=== PATIENT | female | born 1960 | race Caucasian/White ===

== ENCOUNTER 2021-05-13 07:32 | Observation (INO) ==
[2021-05-13] MEDS ORDERED: Famotidine 20 MG/2 ML VIAL IVP ONE ×2 (08:29→13:48)
[2021-05-13] MEDS ORDERED: Isovue-370 500 ML BOTTLE IVP ONE (08:29)
[2021-05-13] MEDS ORDERED: 0.9 % Sodium Chloride 1,000 ML IVC ONE (08:29)
[2021-05-13] MEDS ORDERED: GI Cocktail 40 ML EACH PO ONE (08:29)
[2021-05-13 08:44] LABS: Basophils % 0.4 %; Eosinophils % 0.6 %; Hematocrit 41.6 % (35.3-44.9); Hemoglobin 14.7 g/dL (11.5-15.4); Immature Granulocytes % 0.4 % (0-4); Lymphocytes # 1.2 K/mcL (0.6-4.6); Lymphocytes % 18.1 %; Mean Corpuscular HGB Conc 35.3 g/dL (31.6-35.5); Mean Corpuscular Hemoglobin 32.7 pg (28.0-33.3); Mean Corpuscular Volume 92.4 fL (83.0-100.0); Mean Platelet Volume 9.5 fL (9.4-12.4); Monocytes # 0.5 K/mcL (0.0-1.3); Monocytes % 7.4 %; Platelet Count 271 K/mcL (140-400); Segmented Neutrophils % 73.1 %; White Blood Count 6.8 K/mcL (4.3-11.1)
[2021-05-13 08:56] LABS: Alanine Aminotransferase 37 Units/L (7-52); Albumin 4.6 g/dL (3.5-5.7); Albumin/Globulin Ratio 1.6 (1.1-2.2); Alkaline Phosphatase 62 Units/L (34-104); Aspartate Amino Transferase 27 Units/L (13-39); BUN/Creatinine Ratio 9 (6-26); Bilirubin,Direct 0.2 mg/dL (0.0-0.2); Bilirubin,Indirect 1.7 mg/dL (0.0-1.0); Bilirubin,Total 1.9 mg/dL (0.3-1.0); Blood Urea Nitrogen 7 mg/dL (6-20); Calcium 9.7 mg/dL (8.6-10.3); Carbon Dioxide 26 mEq/L (23-29); Chloride 101 mEq/L (98-107); Globulin 2.9 g/dL (2.4-3.5); Glucose 120 mg/dL (70-105); Lipase 12 Units/L (11-82); Osmolality,Calculated 283 (280-300); Potassium 3.6 mEq/L (3.5-5.1); Sodium 137 mEq/L (136-145); Total Protein 7.5 g/dL (6.4-8.9); eGFR For African Americans > 60 (> 60); eGFR For Non-African Americans > 60 (> 60)
[2021-05-13] MEDS ORDERED: D5% in Lactated Ringers 1,000 ML IVC ONE (09:45)
[2021-05-13] MEDS ORDERED: Metoclopramide 10 MG/2 ML VIAL IVP ONE (14:39)
[2021-05-13] MEDS ORDERED: Mag Hydrox/Al Hydrox/Simeth 30 ML UDC PO PRN (15:46)
[2021-05-13] MEDS ORDERED: Melatonin 3 MG TABLET PO PRN (15:46)
[2021-05-13] MEDS ORDERED: MOM Conc 10 ML UD.LIQ PO PRN (15:46)
[2021-05-13] MEDS ORDERED: Ondansetron ODT 4 MG TAB.RAPDIS SL PRN (15:46)
[2021-05-13] MEDS ORDERED: Naloxone 0.4 MG/ML INJ IVP PRN (15:46)
[2021-05-13] MEDS: D5% in Lactated Ringers 1,000 ML IVC SCH (16:14)
[2021-05-14 03:17] LABS: Hematocrit 39.7 % (35.3-44.9); Hemoglobin 13.6 g/dL (11.5-15.4); Mean Corpuscular HGB Conc 34.3 g/dL (31.6-35.5); Mean Corpuscular Hemoglobin 32.3 pg (28.0-33.3); Mean Corpuscular Volume 94.3 fL (83.0-100.0); Mean Platelet Volume 9.6 fL (9.4-12.4); Platelet Count 231 K/mcL (140-400); Red Blood Count 4.21 M/mcL (3.82-4.97); Red Cell Distribution Width 13.1 % (11.5-14.5); White Blood Count 7.1 K/mcL (4.3-11.1)
[2021-05-14 03:35] LABS: Alanine Aminotransferase 30 Units/L (7-52); Albumin 3.9 g/dL (3.5-5.7); Albumin/Globulin Ratio 1.6 (1.1-2.2); Alkaline Phosphatase 50 Units/L (34-104); Aspartate Amino Transferase 20 Units/L (13-39); BUN/Creatinine Ratio 5 (6-26); Bilirubin,Total 1.4 mg/dL (0.3-1.0); Blood Urea Nitrogen 3 mg/dL (6-20); Calcium 8.8 mg/dL (8.6-10.3); Carbon Dioxide 27 mEq/L (23-29); Chloride 107 mEq/L (98-107); Globulin 2.5 g/dL (2.4-3.5); Glucose 135 mg/dL (70-105); Osmolality,Calculated 289 (280-300); Potassium 3.3 mEq/L (3.5-5.1); Sodium 140 mEq/L (136-145); Total Protein 6.4 g/dL (6.4-8.9); eGFR For African Americans > 60 (> 60); eGFR For Non-African Americans > 60 (> 60)
[2021-05-14] MEDS: *HR* Enoxaparin 40 MG/0.4 ML SYRINGE SQ SCH (04:29)
[2021-05-14] MEDS: D5% in Lactated Ringers 1,000 ML IVC SCH ×2 (04:29→19:52)
[2021-05-14] MEDS ORDERED: Bismuth Subsalicylate 120 ML ORAL SUSPENSION PO PRN (08:11)
[2021-05-15] MEDS: *HR* Enoxaparin 40 MG/0.4 ML SYRINGE SQ SCH (05:10)
[2021-05-15 07:24] LABS: Basophils % 0.3 %; Eosinophils # 0.2 K/mcL (0.0-0.6); Eosinophils % 2.3 %; Hematocrit 40.8 % (35.3-44.9); Hemoglobin 14.5 g/dL (11.5-15.4); Immature Granulocytes % 0.3 % (0-4); Lymphocytes # 1.6 K/mcL (0.6-4.6); Lymphocytes % 23.8 %; Mean Corpuscular HGB Conc 35.5 g/dL (31.6-35.5); Mean Corpuscular Hemoglobin 33.4 pg (28.0-33.3); Mean Platelet Volume 9.7 fL (9.4-12.4); Monocytes # 0.6 K/mcL (0.0-1.3); Monocytes % 8.7 %; Neutrophils # 4.5 K/mcL (1.6-8.9); Platelet Count 277 K/mcL (140-400); Red Blood Count 4.34 M/mcL (3.82-4.97); Red Cell Distribution Width 13.1 % (11.5-14.5); Segmented Neutrophils % 64.6 %; White Blood Count 6.9 K/mcL (4.3-11.1)
[2021-05-15 08:07] LABS: BUN/Creatinine Ratio 5 (6-26); Blood Urea Nitrogen 3 mg/dL (6-20); Calcium 9.5 mg/dL (8.6-10.3); Carbon Dioxide 24 mEq/L (23-29); Chloride 106 mEq/L (98-107); Glucose 121 mg/dL (70-105); Osmolality,Calculated 290 (280-300); Potassium 3.5 mEq/L (3.5-5.1); Sodium 141 mEq/L (136-145); eGFR For African Americans > 60 (> 60); eGFR For Non-African Americans > 60 (> 60)
[2021-05-15] MEDS ORDERED: cefTRIAXone 1,000 MG in Water for inj. (sterile) 10 ML IVP SCH (09:00)
[2021-05-15] MEDS ORDERED: Lidocaine -MPF 2% 5 ML VIAL ONE (09:58)
[2021-05-15] MEDS ORDERED: *HR* Labetalol 20 MG/4 ML SYRINGE IVP ONE (11:47)
[2021-05-15 11:55] VITALS: O2SAT 97
[2021-05-15] MEDS ORDERED: Ringers Solution, Lactated 1,000 ML IVC SCH (12:00)
[2021-05-15 14:46] VITALS: BP 144/84; PULSE 67; TEMP 98.4
== END 2021-05-15 17:59 | disposition home or self-care (01) ==
LOC: 3ANU 07:32 → EMEROOARM 07:32 → SUATTDRO 15:56 → 3ANU 15:57
PROVIDERS: ADMIT Student in an Organized Health Care Education/Training Program; ATTEND Internal Medicine
PROC: ENDOEBX (2021-05-15 17:30)